=== PATIENT | female | born 1995 | race Caucasian/White ===

== ENCOUNTER → 2017-01-17 22:56 | Observation (INO) ==
--- NOTE | 2017-01-17 22:54 | OB/GYN Progress Note ---
Date of Encounter: 01/17/17 Time of Encounter: 22:50 - Assessment and Plan (1) Headache in , antepartum Current Visit: Yes Status: Acute Discussed with patient headaches in , and treatment for them. Discussed taking tylenol as soon as a headache starts instead of waiting hours later as it might not provide as much relief. Offered pt another dose of tylenol to try here, pt declined and would rather take some at home. Also discussed taking magnesium once a day on days she has the headache, and use of a single up of caffeine to help with the headache. Also discussed the importance of hydration in . Pt discharged home with precautions on when to call provider and return to triage. (2) 22 weeks gestation of Current Visit: Yes Status: Acute Subjective - Subjective Interval history: Pt complains of headache for the last 2 days, but they have been occurring the last few weeks of her , along with occasional nosebleeds (no nosebleed at this time) Reports good movement, denies contractions, vaginal bleeding or leaking of fluid. Pt states she had the headache all day, but did not take any tylenol until around 1700 with little improvement. Antepartum ROS: new complaints, movement normal, no loss of fluid, no vaginal bleeding, no contractions Objective - Vital Signs Vital Signs: Intake and Output 01/17/17 01/17/17 01/17/17 07:59 15:59 23:59 Other: Weight 116.9 kg Patient Weight 01/17/17 23:59 Weight 116.9 kg - Exam FHR: auscultation normal Abdomen: Present: normal appearance, soft, gravid
== END | disposition home or self-care (01) ==
LOC: 1NENULAB
PROVIDERS: ADMIT Advanced Practice Midwife; ATTEND Advanced Practice Midwife

== ENCOUNTER 2017-04-22 14:39 | Observation (INO) ==
[2017-04-22 17:25] LABS: Bilirubin,Urine Negative (Negative); Blood,Urine Negative (Negative); Clarity,Urine Cloudy (Clear); Color,Urine Yellow (Yellow); Glucose,Urine (UA) Normal (Normal); Ketones,Urine Negative (Negative); Leukocyte Esterase,Urine Small (Negative); Nitrite,Urine Positive (Negative); PH,Urine 6.5 pH Units (5.0-8.0); Protein,Urine Negative (Neg-Trace); Specific Gravity,Urine > 1.030 (1.010-1.025); Urobilinogen,Urine Normal (Normal)
[2017-04-22 17:27] LABS: Bacteria,Urine Many per hpf (None-Few); Hyaline Casts,Urine Few per lpf (None-Few); RBC,Urine 0-3 per hpf (0-3); Squamous Epithelial Cell,Urine Many per lpf (None-Few); WBC,Urine 30-50 per hpf (0-3)
[2017-04-22 17:35] LABS: Amphetamine Screen,Urine Negative ng/mL (Cutoff=1000); Barbiturate Screen,Urine Negative ng/mL (Cutoff=200); Benzodiazepines Screen,Urine Negative ng/mL (Cutoff=200); Cannabinoid Screen,Urine Negative ng/mL (Cutoff = 50); Cocaine Screen,Urine Negative ng/mL (Cutoff= 300); Opiate Screen,Urine Negative ng/mL (Cutoff=300); Phencyclidine Screen,Urine Negative ng/mL (Cutoff=25)
[2017-04-22 17:51] LABS: Calcium Oxalate Crystals,Urine Present
[2017-04-22 18:20] LABS: Basophils % 0.2 %; Eosinophils % 0.1 %; Hemoglobin 11.1 g/dL (11.5-15.4); Lymphocytes # 1.3 K/mcL (0.6-4.6); Lymphocytes % 9.5 %; Mean Corpuscular HGB Conc 31.7 g/dL (31.6-35.5); Mean Corpuscular Hemoglobin 26.4 pg (28.0-33.3); Mean Corpuscular Volume 83.3 fL (83.0-100.0); Monocytes # 0.5 K/mcL (0.0-1.3); Monocytes % 3.7 %; Neutrophils # 11.3 K/mcL (1.6-8.9); Nucleated Red Blood Cells 0.1 /100 WBC (0); Platelet Count 215 K/mcL (140-400); Red Cell Distribution Width 15.4 % (11.5-14.5); Segmented Neutrophils % 84.5 %
[2017-04-22] MEDS ORDERED: Acetaminophen 325 MG TABLET PO PRN (18:21)
[2017-04-22] MEDS ORDERED: GI Cocktail 40 ML EACH PO ONE (18:22)
[2017-04-22 18:34] LABS: Amylase 76 Units/L (25-125); Lipase 18 Units/L (8-78)
[2017-04-22 18:35] LABS: Alanine Aminotransferase 8 Units/L (0-55); Aspartate Amino Transferase 9 Units/L (5-34); BUN/Creatinine Ratio 15 (6-26); Blood Urea Nitrogen 9 mg/dL (7-20); Lactate Dehydrogenase 163 Units/L (159-327); eGFR For African Americans > 60 (> 60); eGFR For Non-African Americans > 60 (> 60)
--- NOTE | 2017-04-22 18:38 | OB/GYN History & Physical ---
Date of Encounter: 04/22/17 Time of Encounter: 15:30 Assessment and Plan (1) 36 weeks gestation of Current visit: Yes Status: Acute 36 0/7 weeks. Complicated by polydramnios +FM. Denies LOF, vaginal bleeding or discharge FHT category I (2) Abdominal pain Current visit: Yes Status: Acute Epigastric pain radiating to RUQ, RLQ, and back Afebrile, VSS. BP is normal and no other symptoms of PIH UA shows nitrites and small leuk esterase - indicating UTI, but her pain is still concerning for other causes - culture pending DDX includes: UTI, pylonephritis, HELLP syndrome, gall stone/biliary sludge WBC 13.4, Hgb 11.1, Platelets 215 CMP WNL, Amylase and Lipase normal Will check RUQ ultrasound as well Qualifiers: Abdominal location: epigastric Qualified Code(s): R10.13 - Epigastric pain (3) Polyhydramnios Current visit: Yes Status: Acute MOE 35.1 on ultrasound 04/21/17. Passed OGT Qualifiers: Fetus number: single or unspecified fetus Trimester: third trimester Qualified Code(s): O40.3XX0 - Polyhydramnios, third trimester, not applicable or unspecified (4) UTI (urinary tract infection) Current visit: Yes Status: Acute UA shows nitrites and small leuk esterase - indicating UTI, but her pain is still concerning for other causes - culture pending Possible pyelonephritis Plan for antibiotics pending further work-up US ordered for gallbladder PIH labs WNL. WBC 13 after [place] today. Qualifiers: Urinary tract infection type: site unspecified Hematuria presence: without hematuria Qualified Code(s): N39.0 - Urinary tract infection, site not specified History of Present Illness Chief complaint: Abdominal pain HPI: Ms. Regalado is a 21 year old female at 36 0/7 weeks gestation presenting with epigastric abdominal pain radiating down her sides and to her mid back. The pain began this morning when she woke up and she describes it as sharp and constant. It is associated with nausea. Her pain is not worse with eating and is distinctly different than previous heartburn. Worse with movement and contractions. She reports she has had contractions for the past 3 days and received betamethosone twice as an out-patient due to concern for delivery given her MOE 34cm. Her has been complicated by polyhydramnios diagnosed at 34 weeks. Hx of GDM in previous , but not currently. On review of symptoms she admits to some mild LE edema. +FM. She denies fevers, chills, headaches, vision changes, shortness of breath, chest pain, vomiting, diarrhea, dysuria, hematuria, foul smelling urine, LOF, vaginal bleeding or discharge. Past Med Surg Social Fam HX - Past Medical History Source: patient Medical history: non-contributory Psychiatric history: no psych history - Past Surgical History Surgical History: other (D&C after miscarriage) - Social History Smoking Status: Never smoker Smokeless Tobacco Status: No Alcohol use: none Drug use: none - Family History Mother Living Status: Still Living Hx Family Cardiac Disorders: Yes (hypertension) Hx Family Respiratory Disorders: No Hx Family Cancer: No Hx Family GI Disorders: No Hx Family Endocrine Disorder: No Hx Family Neuromuscular Disorders: No Hx Family Neurologic Disorders: No Hx Family HEENT Disorders: No Hx Family Autoimmune Disorders: No Obstetrical History - Pregnancies : 3 Para: 2 Term: 1 : 0 Ab's: 1 Livin - History/Complications History/Complications: Polyhydramnios - MOE 35.1 GDM with prior and shoulder dystocia during delivery. No GDM currently. Medications and Allergies No Known Home Drugs 01/17/17 [History] 3 Allergy/AdvReac Type Severity Reaction Status Date / Time No Known Allergies Allergy Verified 01/17/17 22:25 Review of System OB All systems PM: reviewed and no additional remarkable complaints except as stated Exam - Constitutional Constitutional: well developed, well nourished, mild distress, obese - HEENT HEENT: Normocephaly, Mucus Membranes Moist - Lungs Respiratory exam: CTAB - Cardiovascular Cardiovascular exam: RRR, +S1, +S2 - Abdomen Abdomen: Present: bowel sounds normal, gravid Abdomen detail: right upper quadrant: tenderness (Epigastric. Right CVA tenderness), right lower quadrant: tenderness - Extremities Extremities exam: pedal edema (mild bilaterally) - Uterus Uterus exam: Present: enlarged, normal contour. Absent: tender - Comments Comments: FHT baseline 125 bpm with moderate variability and accels Results Result Diagrams: 04/22/17 18:10 04/22/17 18:10 Abnormal lab results WBC 13.4 K/mcL (4.3-11.1) H 04/22/17 18:10 Hgb 11.1 g/dL (11.5-15.4) L 04/22/17 18:10 Hct 35.0 % (35.3-44.9) L 04/22/17 18:10 MCH 26.4 pg (28.0-33.3) L 04/22/17 18:10 RDW 15.4 % (11.5-14.5) H 04/22/17 18:10 Neutrophils # 11.3 K/mcL (1.6-8.9) H 04/22/17 18:10 Nucleated RBCs/100 WBC 0.1 /100 WBC (0) H 04/22/17 18:10 Urine Clarity Cloudy (Clear) A 04/22/17 16:35 Ur Specific [employer] > 1.030 (1.010-1.025) H 04/22/17 16:35 Urine Nitrite Positive (Negative) A 04/22/17 16:35 Ur Leukocyte Esterase Small (Negative) H 04/22/17 16:35 Urine Microscopic WBC 30-50 per hpf (0-3) H 04/22/17 16:35 Ur Squamous Epith Cells Many per lpf (None-Few) H 04/22/17 16:35 Urine Bacteria Many per hpf (None-Few) H 04/22/17 16:35 Ur Culture Indicated? YES (NO) A 04/22/17 16:35 All other labs normal. - VTE Reasons for not Prescribing Prophylaxis: Treatment not Indicated - Low risk for VTE
[2017-04-22] MEDS ORDERED: Ringers Solution, Lactated 1,000 ML IVC ONE (21:05)
[2017-04-22] MEDS ORDERED: cefTRIAXone 1,000 MG in Water for inj. (sterile) 10 ML IVP SCH (22:00)
[2017-04-23 00:11] LABS: Glucose 103 mg/dL (70-99)
[2017-04-23] MEDS ORDERED: *HR* HYDROcodone/Acet 5/325 mg TABLET PO ONE (00:31)
[2017-04-23 08:07] LABS: Protein/Creatinine Ratio,Urine 0.08 mg/mg (0-0.20)
== END 2017-04-23 01:14 | disposition home or self-care (01) ==
LOC: 1NENULAB
PROVIDERS: ADMIT Obstetrics & Gynecology; ATTEND Obstetrics & Gynecology

== ENCOUNTER → 2017-05-08 23:00 | Observation (INO) ==
[2017-05-08 18:54] LABS: Basophils % 0.4 %; Eosinophils # 0.1 K/mcL (0.0-0.6); Eosinophils % 0.8 %; Hematocrit 36.7 % (35.3-44.9); Hemoglobin 11.6 g/dL (11.5-15.4); Lymphocytes # 1.7 K/mcL (0.6-4.6); Lymphocytes % 17.2 %; Mean Corpuscular HGB Conc 31.6 g/dL (31.6-35.5); Mean Corpuscular Hemoglobin 26.4 pg (28.0-33.3); Mean Corpuscular Volume 83.4 fL (83.0-100.0); Mean Platelet Volume 10.5 fL (9.4-12.4); Monocytes # 0.5 K/mcL (0.0-1.3); Monocytes % 4.9 %; Neutrophils # 7.6 K/mcL (1.6-8.9); Platelet Count 217 K/mcL (140-400); Red Cell Distribution Width 15.9 % (11.5-14.5); Segmented Neutrophils % 75.7 %
[2017-05-08 19:03] LABS: Amphetamine Screen,Urine Negative ng/mL (Cutoff=1000); Barbiturate Screen,Urine Negative ng/mL (Cutoff=200); Benzodiazepines Screen,Urine Negative ng/mL (Cutoff=200); Cannabinoid Screen,Urine Negative ng/mL (Cutoff = 50); Cocaine Screen,Urine Negative ng/mL (Cutoff= 300); Opiate Screen,Urine Negative ng/mL (Cutoff=300); Phencyclidine Screen,Urine Negative ng/mL (Cutoff=25)
[2017-05-08 19:11] LABS: Alanine Aminotransferase 11 Units/L (0-55); Albumin 2.3 g/dL (3.5-5.0); Albumin/Globulin Ratio 0.5 (1.1-2.2); Alkaline Phosphatase 156 Units/L (38-126); Amylase 79 Units/L (25-125); Aspartate Amino Transferase 12 Units/L (5-34); BUN/Creatinine Ratio 17 (6-26); Bilirubin,Total 0.2 mg/dL (0.2-1.2); Blood Urea Nitrogen 11 mg/dL (7-20); Calcium 9.4 mg/dL (8.6-10.8); Carbon Dioxide 18 mEq/L (19-29); Chloride 107 mEq/L (98-109); Globulin 4.6 g/dL (2.4-3.5); Glucose 111 mg/dL (70-99); Lipase 19 Units/L (8-78); Osmolality,Calculated 288 (280-300); Potassium 4.1 mEq/L (3.5-4.5); Sodium 139 mEq/L (136-145); Total Protein 6.9 g/dL (6.0-8.3); eGFR For African Americans > 60 (> 60); eGFR For Non-African Americans > 60 (> 60)
--- NOTE | 2017-05-08 20:50 | OB/GYN Progress Note ---
Date of Encounter: 05/08/17 Time of Encounter: 20:44 - Assessment and Plan (1) 38 weeks gestation of Current Visit: Yes Status: Acute There with Dr. Martinez. section scheduled for 05/14 (2) Cholelithiasis Current Visit: Yes Status: Acute Discussed with Dr. Joshi, ordered CBC, CMP and gallbladder US. Pt filipe but states does not feel contractions. VE /-2 unchanged on serial exam. Discussed all results with Dr. Joshi he states pt pain will continue until delivery. Medicate with Percocet, if pain is management is satisfactory discharge home with Percocet. Pt states has effectively managed pain. Will discharge home with Percocet prescription, discuss labor precautions, cholelithiasis precautions, importance of movement, and when to return to return to triage for evaluation. Qualifiers: Cholecystitis presence: without cholecystitis Qualified Code(s): K80.20 - Calculus of gallbladder without cholecystitis without obstruction Subjective - Subjective Interval history: A 3 P1 38+2 weeks gestation presented to triage for evaluation of right upper quadrant pain. She was seen at the end of April and diagnosed with cholelithiasis. Patient states right upper quadrant pain started this morning, and has not relieved throughout the day. Reports good movement, denies vaginal bleeding or leaking fluid, headache, or visual changes Antepartum ROS: movement normal, no loss of fluid, no vaginal bleeding, no contractions Objective - Vital Signs Vital Signs: Intake and Output 05/08/17 05/08/17 05/08/17 07:59 15:59 23:59 Other: Weight 133.2 kg Patient Weight 05/08/17 23:59 Weight 133.2 kg - Exam FHR: auscultation normal FHR comments: 140/ reactive Auscultation: bilateral: normal Abdomen: Present: soft, gravid Cervical dilation: 75/-2 Comments: RUQ tenderness to palpation. - Labs Labs: Abnormal lab results MCH 26.4 pg (28.0-33.3) L 05/08/17 18:40 RDW 15.9 % (11.5-14.5) H 05/08/17 18:40 Carbon Dioxide 18 mEq/L (19-29) L 05/08/17 18:40 Glucose 111 mg/dL (70-99) H 05/08/17 18:40 Alkaline Phosphatase 156 Units/L (38-126) H 05/08/17 18:40 Albumin 2.3 g/dL (3.5-5.0) L 05/08/17 18:40 Globulin 4.6 g/dL (2.4-3.5) H 05/08/17 18:40 Albumin/Globulin Ratio 0.5 (1.1-2.2) L 05/08/17 18:40
[~2017-05-08 23:00] MED LIST: *HR* OxyCODONE/APAP 5/325 TABLET PO PRN
== END | disposition home or self-care (01) ==
LOC: 1NENULAB
PROVIDERS: ADMIT Student in an Organized Health Care Education/Training Program; ATTEND Student in an Organized Health Care Education/Training Program

== ENCOUNTER 2017-05-10 10:11 | Inpatient (IN) ==
--- NOTE | 2017-05-10 10:08 | Anesthesia Evaluation PreOp ---
Date of Encounter: 05/10/17 Time of Encounter: 10:00 - Past History Planned Operation: C Section Cardiac History: Other (Anemia) Pulmonary History: Denies Any Significant HX [employer] History: Denies Any Significant HX Other Medical History: Other (Morbid Obesity) Anesthesia History: No Prior Anesthetic Complications : Yes (38 week) Alcohol Use: none Drug use: none Medications and Allergies Ferrous Sulfate 05/08/17 [History] Oxycodone HCl/Acetaminophen [Percocet 5-325 mg Tablet] 1 each PO Q6HR PRN #5 tablet 05/08/17 [Rx] Tylenol 325mg SUPP 05/08/17 [History] 3 Allergy/AdvReac Type Severity Reaction Status Date / Time No Known Allergies Allergy Verified 01/17/17 22:25 - Meds/Allergy Pre-op Review Medications Reviewed: Yes Allergies Reviewed: Yes Beta Blockers on Current Med List: No Anesthesia Results - Labs Laboratory Tests 05/08/17 05/08/17 18:40 18:40 Hgb 11.6 Hct 36.7 Plt Count 217 Sodium 139 Potassium 4.1 BUN 11 Creatinine 0.63 Anesthesia Exam Height: 5'4 Weight: 280 lbs NPO (# of Hours): MN Pain Scale: 9 - HEENT Pupil (Motor): Pupils equal, EOMI Mallampati: II Teeth: Normal Oral Opening: Greater than 3 - [employer] LOC: Oriented [employer] Motor: Normal RUE, Normal LUE, Normal RLE, Normal LLE, Normal Face [employer] Sensory: Normal: RUE, LUE, RLE, LLE, Face - Cardiac Rhythm: Regular Murmur: None JVD: No Carotid Bruit: No - Pulmonary Breath Sounds: bilateral Clear Respiratory Effort: Symmetrical Anesthesia Assess/Plan ASA Score: 3 (MO ), E Modified Gracia Scale for Level of Consciousness: Cooperative, oriented, and tranquil Anesthetic Plan: General Monitoring Plan: Standard Monitors Recovery Plan: PACU (Discussed GA, agrees to proceed)
[~2017-05-10 10:11] MED LIST changes: -*HR* OxyCODONE/APAP 5/325 TABLET PO PRN; +CeFAZolin Syr 3,000MG/30 ML 3,000 MG/30 ML SYRINGE IVPB ONE; +Famotidine 20 MG/2 ML VIAL IVP ONE; +Metoclopramide 10 MG/2 ML VIAL IVP ONE; +Oxytocin 20 units/ LR 1000 mL 20 UNIT/1,000 ML BAG IVC ONE; +Ringers Solution, Lactated 1,000 ML IVC ONE; +Ringers Solution, Lactated 1,000 ML ONE
[2017-05-10] MEDS ORDERED: Oxytocin 20 units/ LR 1000 mL 20 UNIT/1,000 ML BAG IVC SCH ×2 (10:15→12:45)
[2017-05-10 10:22] LABS: Basophils % 0.3 %; Eosinophils # 0.1 K/mcL (0.0-0.6); Eosinophils % 1.3 %; Hematocrit 39.4 % (35.3-44.9); Hemoglobin 12.5 g/dL (11.5-15.4); Immature Granulocytes % 1.2 % (0-4); Lymphocytes # 2.3 K/mcL (0.6-4.6); Mean Corpuscular HGB Conc 31.7 g/dL (31.6-35.5); Mean Corpuscular Hemoglobin 26.4 pg (28.0-33.3); Mean Corpuscular Volume 83.3 fL (83.0-100.0); Mean Platelet Volume 10.2 fL (9.4-12.4); Monocytes # 0.6 K/mcL (0.0-1.3); Monocytes % 5.7 %; Neutrophils # 7.2 K/mcL (1.6-8.9); Platelet Count 220 K/mcL (140-400); Red Blood Count 4.73 M/mcL (3.82-4.97); Red Cell Distribution Width 15.9 % (11.5-14.5); Segmented Neutrophils % 69.5 %
[2017-05-10] MEDS ORDERED: *HR* Promethazine 25 MG/ML VIAL IVP PRN (10:45)
[2017-05-10] MEDS ORDERED: Ondansetron 4 MG/2 ML VIAL IVP ONE (10:45)
[2017-05-10] MEDS ORDERED: *HR* HYDROmorphone (PF) 1 MG/ML SYRINGE IVP PRN (10:45)
[2017-05-10] MEDS ORDERED: *HR* Morphine 2 MG/ML SYRINGE IVP PRN (10:45)
[2017-05-10] MEDS ORDERED: Acetaminophen IV 1,000 MG/100 ML INFUS..BTL IVPB ONE (10:49)
[2017-05-10] MEDS ORDERED: *HR* Succinylcholine 200 MG/10 ML VIAL IVP ONE (10:57)
[2017-05-10] MEDS ORDERED: *HR* HYDROmorphone (PF) 1 MG/ML SYRINGE ONE ×2 (10:57→11:13)
[2017-05-10] MEDS ORDERED: Ringers Solution, Lactated 1,000 ML ONE (10:57)
[2017-05-10] MEDS ORDERED: *HR* Oxytocin 10 UNIT/ML VIAL IM ONE ×2 (10:57)
[2017-05-10] MEDS ORDERED: Ondansetron 4 MG/2 ML VIAL ONE (10:57)
[2017-05-10] MEDS ORDERED: Dexamethasone 4 MG/ML VIAL ONE (10:57)
[2017-05-10] MEDS ORDERED: *HR* FentaNYL (PF) 100 MCG/2 ML VIAL ONE (10:57)
[2017-05-10] MEDS ORDERED: Water for inj. (sterile) 10 ML IV ONE (10:57)
[2017-05-10] MEDS ORDERED: *HR* Phenylephrine 10 MG/ML VIAL ONE (10:57)
[2017-05-10] MEDS ORDERED: *HR* Propofol 200 MG/20 ML VIAL IVP ONE (10:58)
--- NOTE | 2017-05-10 11:06 | OB/GYN History & Physical ---
Date of Encounter: 05/10/17 Time of Encounter: 11:06 Assessment and Plan (1) 38 weeks gestation of Current visit: Yes Status: Acute I counseled the patient again on whether she would want to try a vaginal delivery. With her history of shoulder dystocia in her last delivery and after counseling her that it is possible for her to have another shoulder dystocia especially in the setting of an LGA fetus, she was adamant that she did not want to try vaginal delivery. Anesthesia called in. The patient is unable to sit still for a spinal so she will be under general anesthesia. Patient readied for C/section. History of Present Illness HPI: Ms. Regalado is a 21 year old female @ 38+4 weeks who presented to L&D in labor. Her cervix was checked and 9cm with a bulging bag. She was initially scheduled for C/section on for LGA fetus. Her last U/S @ 34 weeks was 6lbs 15oz. course was complicated by polyhydramnios as well, her GTT was normal, GBS neg. No LOF or bleeding, very uncomfortable with her ctxs. Past Med Surg Social Fam HX - Past Medical History Medical history: no medical history Psychiatric history: no psych history - Past Surgical History Surgical History: other (D&C after miscarriage) - Social History Smoking Status: Never smoker Smokeless Tobacco Status: No Alcohol use: none Drug use: none - Family History Mother Adopted: No Living Status: Still Living Hx Family Cardiac Disorders: No Hx Family Respiratory Disorders: No Hx Family Cancer: No Hx Family GI Disorders: No Hx Family Endocrine Disorder: No Hx Family Neuromuscular Disorders: No Hx Family Neurologic Disorders: No Hx Family HEENT Disorders: No Hx Family Autoimmune Disorders: No Obstetrical History - Pregnancies : 3 Para: 2 Term: 1 Ab's: 1 Livin Medications and Allergies Ferrous Sulfate 05/08/17 [History] Oxycodone HCl/Acetaminophen [Percocet 5-325 mg Tablet] 1 each PO Q6HR PRN #5 tablet 05/08/17 [Rx] Tylenol 325mg SUPP 05/08/17 [History] 3 Allergy/AdvReac Type Severity Reaction Status Date / Time No Known Allergies Allergy Verified 01/17/17 22:25 Review of System OB All systems PM: reviewed and no additional remarkable complaints except as stated Exam - Constitutional Constitutional: well developed - HEENT HEENT: Normocephaly - Neck Neck exam: full ROM - Lungs Respiratory exam: CTAB - Cardiovascular Cardiovascular exam: RRR - Abdomen Abdomen: Present: gravid - Cervix Dilation: 9 Results Result Diagrams: 05/10/17 10:11 Abnormal lab results MCH 26.4 pg (28.0-33.3) L 05/10/17 10:11 RDW 15.9 % (11.5-14.5) H 05/10/17 10:11 All other labs normal. - VTE Reasons for not Prescribing Prophylaxis: Treatment not Indicated - Low risk for VTE
--- NOTE | 2017-05-10 11:19 | OB/GYN Procedure Note ---
Section - Date of procedure: 05/10/17 Preop diagnosis: other (LGA fetus) Post-op diagnosis: same Procedure: section, primary low transverse Surgeon: Mildred Joshi Estimated blood loss (cc): 450 Anesthesia Type: General section complications: none Disposition: L&D Recovery Room Specimens: Placenta, Cord blood - Narrative Narrative: Patient was brought to the operating room and was the abdomen was prepped and draped in a sterile fashion. She was then placed under general anesthesia. A Pfannenstiel incision was made and carried sharply down to the level of the fascia. The fascia was incised transversely. The fascia was dissected away from the underlying rectus muscles. With sharp and blunt dissection, rectus muscles were divided in midline. The perineum was entered bluntly. A transverse incision was made across the bladder peritoneum. The bladder was dissected away from the underlying lower uterine segment. Bladder retractor was placed to protect the bladder. The lower uterine segment was entered sharply with a scalpel. Incision was manually extended. Clear amniotic fluid was encountered. The infant's head was pulled up and delivered easily as were the shoulders and body. The mouth and oropharynx were suctioned. The cord was clamped and cut. The was passed off to the waiting esl teacher in satisfactory condition. Placenta was extracted completely and found to be intact. Uterus was explored and found to be empty. Uterus was delivered through the abdominal incision and massaged vigorously. Intravenous Pitocin was administered. The margins of the uterine incision was closed primarily with a running locking stitch of 0 Vicryl with adequate hemostasis. Secondary running locking stitch was placed for extra strength to the wound. The uterus was returned to its proper anatomic position in the abdomen. The fascia was closed with a simple running stitch of 0 vicryl. The skin was closed with running subcuticular of 4-0 vicryl. Patient was brought to the recovery room in satisfactory condition. There were no complications. There was 450 cc of blood loss. All sponge, needle, and instrument counts were reported to be correct.
--- NOTE | 2017-05-10 12:59 | Anesthesia Evaluation Post Op ---
Date of Encounter: 05/10/17 Time of Encounter: 12:58 - Vital Signs Vital Signs: VSS throughout PACU stay. - Lungs Lungs: Clear Ascult./Percussion - Airway Airway: Non-obstructed - Cardiovascular Regular Rate - Mental Status Mental Status: Alert & Oriented, Answers Appropriately - Pain Pain Scale: 4 Pain Scale used: Numeric (1 - 10) - Nausea Vomiting Nausea Vomiting: Not Present - Hydration Hydration: NPO, Holguin catheter - Discharge PostOp Status: Transfer Patient to floor
[2017-05-10] MEDS: *HR* HYDROmorphone (PF) 1 MG/ML SYRINGE IVP PRN ×2 (14:17→15:34)
[2017-05-10] MEDS: *HR* HYDROcodone/Acet 5/325 mg TABLET PO PRN ×2 (17:22→23:42)
[2017-05-10 17:40] LABS: Basophils % 0.1 %; Hematocrit 31.8 % (35.3-44.9); Immature Granulocytes % 0.6 % (0-4); Lymphocytes # 0.9 K/mcL (0.6-4.6); Lymphocytes % 4.5 %; Mean Corpuscular HGB Conc 32.4 g/dL (31.6-35.5); Mean Corpuscular Volume 83.5 fL (83.0-100.0); Mean Platelet Volume 10.5 fL (9.4-12.4); Monocytes # 0.7 K/mcL (0.0-1.3); Monocytes % 3.7 %; Neutrophils # 17.5 K/mcL (1.6-8.9); Platelet Count 211 K/mcL (140-400); Red Blood Count 3.81 M/mcL (3.82-4.97); Red Cell Distribution Width 15.9 % (11.5-14.5); Segmented Neutrophils % 91.1 %
[2017-05-10 17:43] LABS: Hemoglobin 10.3 g/dL (11.5-15.4)
[2017-05-10] MEDS: Ibuprofen 600 MG TABLET PO PRN (20:30)
[2017-05-11] MEDS: Ibuprofen 600 MG TABLET PO PRN ×3 (04:10→21:38)
[2017-05-11 06:24] LABS: Basophils % 0.1 %; Eosinophils % 0.2 %; Hematocrit 27.3 % (35.3-44.9); Immature Granulocytes % 0.8 % (0-4); Lymphocytes # 1.3 K/mcL (0.6-4.6); Lymphocytes % 11.1 %; Mean Corpuscular HGB Conc 31.5 g/dL (31.6-35.5); Mean Corpuscular Hemoglobin 26.5 pg (28.0-33.3); Mean Corpuscular Volume 84.3 fL (83.0-100.0); Mean Platelet Volume 10.5 fL (9.4-12.4); Monocytes # 0.7 K/mcL (0.0-1.3); Monocytes % 5.9 %; Neutrophils # 9.8 K/mcL (1.6-8.9); Platelet Count 152 K/mcL (140-400); Red Blood Count 3.24 M/mcL (3.82-4.97); Red Cell Distribution Width 16.2 % (11.5-14.5); Segmented Neutrophils % 81.9 %
[2017-05-11 06:29] LABS: Hemoglobin 8.6 g/dL (11.5-15.4)
[2017-05-11] MEDS: *HR* HYDROmorphone (PF) 1 MG/ML SYRINGE IVP PRN (06:34)
--- NOTE | 2017-05-11 07:59 | OB/GYN Progress Note ---
Date of Encounter: 05/11/17 Time of Encounter: 07:57 - Assessment and Plan (1) delivery delivered Current Visit: Yes Status: Acute Stable POD#1, transition to PO pain medication. encourage ambulation. anticipate DC tomorrow. (2) Anemia, Current Visit: Yes Status: Acute Continue iron Subjective - Subjective Interval history: Pt states pain currently well managed on iv pain medication, tolerates clears, trevizo just removed at 0600, has not voided at this time. Patient reports: appetite normal, pain well controlled [place]: doing well, nursing well Objective - Vital Signs Latest vital signs: Vital Signs Temp Pulse Resp BP Pulse Ox 05/11/17 07:30 98.7 F 106 18 121/69 98 05/11/17 06:30 98.7 F 106 16 109/62 98 05/11/17 05:40 98.1 F 104 16 102/59 97 05/11/17 04:21 98.8 F 116 16 116/68 100 05/11/17 00:10 98.7 F 101 16 111/68 98 05/10/17 20:00 98.7 F 102 14 130/88 99 05/10/17 19:00 98.3 F 104 20 128/78 97 05/10/17 18:14 98.0 F 106 16 133/79 97 05/10/17 17:10 98 05/10/17 17:00 98.6 F 114 18 134/87 98 05/10/17 16:10 97.8 F 106 18 136/86 98 05/10/17 15:15 97.5 F L 104 18 140/84 97 05/10/17 14:30 98.1 F 100 16 127/84 97 05/10/17 14:05 98.2 F 114 14 123/81 98 Intake and Output 05/10/17 05/10/17 05/11/17 15:59 23:59 07:59 Intake Total 100 / 100 200 / 200 Output Total 1000 / 1000 700 / 700 Balance 100 / 100 -800 / -800 -700 / -700 Intake: IV Fluids 100 / 100 Ofirmev 1,000 mg/100 ml 1,000 100 / 100 mg In 100 ml @ 400 mls/hr IVPB ONCE ONE Rx#:[id number] Oral 200 / 200 Output: Urine 500 / 500 Catheter 1000 / 1000 200 / 200 Other: Weight 126.6 kg 123.06 kg Patient Weight 05/11/17 23:59 Weight 123.06 kg - Exam Lungs: bilateral: normal Chest: Normal S1, Normal S2 Extremities: Present: normal Abdomen: Present: normal appearance, soft Incision: Present: dressed (MAYDA in place) Uterus: Present: firm Comments: fundus at U - Labs Labs: Laboratory Results - last 24 hr 05/10/17 05/10/17 05/11/17 10:11 17:34 06:02 WBC 10.4 19.2 H D 12.0 H RBC 4.73 3.81 L 3.24 L Hgb 12.5 10.3 L D 8.6 L D Hct 39.4 31.8 L 27.3 L MCV 83.3 83.5 84.3 MCH 26.4 L 27.0 L 26.5 L MCHC 31.7 32.4 31.5 L RDW 15.9 H 15.9 H 16.2 H Plt Count 220 211 152 MPV 10.2 10.5 10.5 Immature Gran % 1.2 0.6 0.8 Seg Neutrophils % 69.5 91.1 81.9 Lymphocytes % 22.0 4.5 11.1 Monocytes % 5.7 3.7 5.9 Eosinophils % 1.3 0.0 0.2 Basophils % 0.3 0.1 0.1 Neutrophils # 7.2 17.5 H 9.8 H Lymphocytes # 2.3 0.9 1.3 Monocytes # 0.6 0.7 0.7 Eosinophils # 0.1 0.0 0.0 Basophils # 0.0 0.0 0.0
[2017-05-11] MEDS: Prenatal Vit/FA 1 EACH TABLET PO SCH (09:27)
[2017-05-11] MEDS: *HR* HYDROcodone/Acet 5/325 mg TABLET PO PRN ×3 (09:35→21:37)
[2017-05-11] MEDS ORDERED: Ringers Solution, Lactated 1,000 ML ONE (11:59)
[2017-05-11] MEDS ORDERED: Acetaminophen 325 MG TABLET PO PRN (21:00)
--- NOTE | 2017-05-11 21:03 | OB/GYN Progress Note ---
Date of Encounter: 05/11/17 Time of Encounter: 21:01 - Assessment and Plan (1) delivery delivered Current Visit: Yes Status: Acute Stable POD#1, transition to PO pain medication. encourage ambulation. anticipate DC tomorrow. (2) Anemia, Current Visit: Yes Status: Acute Continue iron (3) Fever Current Visit: Yes Status: Acute Called by RN to assess. Discussed with Dr. Oliveros will obtain AM CBC now, start Keflex, Clindamycin and tylenol now, encourage po fluid intake. Will observe. Does not meet SIRS criteria at this time. Qualifiers: Fever type: unspecified Qualified Code(s): R50.9 - Fever, unspecified Subjective - Subjective Interval history: Pt states she currently feels hot and sore all over with pain and tenderness in bilateral breasts,tolerates po, ambulated around unit, . Patient reports: appetite normal, voiding normally, pain well controlled, ambulating normally [place]: doing well, nursing well Objective - Vital Signs Latest vital signs: Vital Signs Temp Pulse Resp BP Pulse Ox 05/11/17 20:00 100.6 F H 126 14 129/75 98 05/11/17 15:00 98.4 F 108 18 127/69 05/11/17 07:30 98.7 F 106 18 121/69 98 05/11/17 06:30 98.7 F 106 16 109/62 98 05/11/17 05:40 98.1 F 104 16 102/59 97 05/11/17 04:21 98.8 F 116 16 116/68 100 05/11/17 00:10 98.7 F 101 16 111/68 98 Intake and Output 05/11/17 05/11/17 05/11/17 07:59 15:59 23:59 Intake Total 800 / 800 Output Total 700 / 700 1600 / 1600 800 / 800 Balance -700 / -700 -800 / -800 -800 / -800 Intake: Oral 800 / 800 Output: Urine 500 / 500 1600 / 1600 800 / 800 Catheter 200 / 200 Other: Meal Lunch Percent of Meal Consumed 100% Weight 123.06 kg Patient Weight 05/11/17 23:59 Weight 123.06 kg - Exam Lungs: bilateral: normal Chest: Normal S1, Normal S2 Extremities: Present: normal Abdomen: Present: normal appearance, soft, tenderness Incision: Present: dressed (Mayda in place no signs of rendess outside of dressing ) Uterus: Present: firm (at U) Comments: Pt warm to touch, redness noted to bilateral areola, left greater than right. Abdomen tender to touch, MAYDA without drainage or redness outside of dressing. Tachycardia noted with HR in 120 - Labs Labs: Laboratory Results - last 24 hr 05/11/17 06:02 WBC 12.0 H RBC 3.24 L Hgb 8.6 L D Hct 27.3 L MCV 84.3 MCH 26.5 L MCHC 31.5 L RDW 16.2 H Plt Count 152 MPV 10.5 Immature Gran % 0.8 Seg Neutrophils % 81.9 Lymphocytes % 11.1 Monocytes % 5.9 Eosinophils % 0.2 Basophils % 0.1 Neutrophils # 9.8 H Lymphocytes # 1.3 Monocytes # 0.7 Eosinophils # 0.0 Basophils # 0.0
[2017-05-11] MEDS: cephALEXin 500 MG CAPSULE PO SCH (21:37)
[2017-05-11 21:55] LABS: Basophils % 0.3 %; Eosinophils % 0.3 %; Hematocrit 26.1 % (35.3-44.9); Hemoglobin 8.3 g/dL (11.5-15.4); Immature Granulocytes % 1.7 % (0-4); Lymphocytes # 1.7 K/mcL (0.6-4.6); Lymphocytes % 13.4 %; Mean Corpuscular HGB Conc 31.8 g/dL (31.6-35.5); Mean Corpuscular Hemoglobin 26.7 pg (28.0-33.3); Mean Corpuscular Volume 83.9 fL (83.0-100.0); Mean Platelet Volume 10.1 fL (9.4-12.4); Monocytes # 0.7 K/mcL (0.0-1.3); Monocytes % 5.5 %; Neutrophils # 9.7 K/mcL (1.6-8.9); Platelet Count 166 K/mcL (140-400); Red Blood Count 3.11 M/mcL (3.82-4.97); Red Cell Distribution Width 16.5 % (11.5-14.5); Segmented Neutrophils % 78.8 %
[2017-05-12] MEDS: Ibuprofen 600 MG TABLET PO PRN ×3 (06:22→20:48)
[2017-05-12] MEDS: *HR* HYDROcodone/Acet 5/325 mg TABLET PO PRN ×3 (06:23→23:33)
[2017-05-12] MEDS: cephALEXin 500 MG CAPSULE PO SCH ×4 (06:45→23:32)
[2017-05-12] MEDS: Prenatal Vit/FA 1 EACH TABLET PO SCH (07:53)
--- NOTE | 2017-05-12 08:34 | OB/GYN Progress Note ---
Date of Encounter: 05/12/17 Time of Encounter: 08:32 - Assessment and Plan (1) delivery delivered Current Visit: Yes Status: Acute Pt is s/p POD#2 and meeting all post-op milestones. Ambulating well, tolerating PO intake, passing flatus. Pain controlled. (2) Anemia, Current Visit: Yes Status: Acute Hgb 7.4, down from 8.3. Denies dizziness or light-headedness. Continue Iron supplementation (3) Fever Current Visit: Yes Status: Acute Pt had a fever last evening of 100.6. No fever this AM or other signs of infection. WBC now 12.3. Continue Keflex and Clindamycin. Continue to monitor and likely discharge tomorrow. Qualifiers: Fever type: unspecified Qualified Code(s): R50.9 - Fever, unspecified Subjective - Subjective Principal diagnosis: s/p Section Interval history: Pt is doing well this morning with no complaints. Reports that she was feeling warm last evening with her elevated temp (100.6), but denies any warmth, flushing, or chills today. Patient reports: appetite normal, voiding normally, pain well controlled, ambulating normally [place]: doing well, bottle feeding (and supplementing with formula) Objective - Vital Signs Latest vital signs: Vital Signs Temp Pulse Pulse Resp BP Pulse Ox 05/12/17 07:59 16 05/12/17 03:15 98.5 F 107 16 110/75 98 05/11/17 23:50 98 F 112 14 141/87 98 05/11/17 20:00 100.6 F H 126 14 129/75 98 05/11/17 19:55 126 05/11/17 15:00 98.4 F 108 18 127/69 Intake and Output 05/11/17 05/12/17 05/12/17 23:59 07:59 15:59 Intake Total 800 / 800 Output Total 1200 / 1200 900 / 900 Balance -1200 / -1200 -100 / -100 Intake: Oral 800 / 800 Output: Urine 1200 / 1200 900 / 900 Other: Stool Size Small Stool Characteristics Normal for Patient Normal for Patient - Exam Lungs: bilateral: normal Chest: Normal S1, Normal S2 Extremities: Present: normal, edema (mild bilaterally) Abdomen: Present: normal appearance, soft, gravid Incision: Present: normal (dressing in place, clean, dry, and intact), dry, intact Uterus: Present: normal, firm Fundal Height: 2 (fingers below umbilicus) Comments: I examined this patient and my medical decision-making was reviewed with the Resident Physician. I agree with the documented findings, disposition and treatment plan as described except to the extent set forth below. GABRIEL Wren - Labs Labs: Laboratory Results - last 24 hr 05/11/17 21:48 WBC 12.3 H RBC 3.11 L Hgb 8.3 L Hct 26.1 L MCV 83.9 MCH 26.7 L MCHC 31.8 RDW 16.5 H Plt Count 166 MPV 10.1 Immature Gran % 1.7 Seg Neutrophils % 78.8 Lymphocytes % 13.4 Monocytes % 5.5 Eosinophils % 0.3 Basophils % 0.3 Neutrophils # 9.7 H Lymphocytes # 1.7 Monocytes # 0.7 Eosinophils # 0.0 Basophils # 0.0
[2017-05-13] MEDS: Ibuprofen 600 MG TABLET PO PRN ×2 (05:41→11:39)
[2017-05-13] MEDS: *HR* HYDROcodone/Acet 5/325 mg TABLET PO PRN ×2 (05:42→11:39)
--- NOTE | 2017-05-13 08:45 | Discharge Summary ---
Date of Encounter: 05/13/17 Time of Encounter: 08:42 - Discharge Diagnosis (1) S/P section Priority: Primary Status: Acute Comments: Patient is s/p c section POD #3. She states that she has been able to ambulate with out issues. Tolerating PO without issues. States that she has been passing flatus and has had a bowel movement. States that she has been urinating. Reports decreased vaginal bleeding. She is attempting to breast feed. States that she is doing well and ready to go home. (2) Breast feeding status of mother Priority: Secondary Status: Acute Comments: Patient is breast feeding. Breast pump prescription at discharge. (3) Anemia, Priority: Secondary Status: Acute Comments: Most recent Hgb 8.3 Continue ferrous sulfate - Discharge Medications Prescriptions: HYDROcodone/Acet 5/325 mg [[place] 5-325 mg] 1 tab PO Q6HR PRN #30 tablet PRN Reason: Moderate Pain (4-6) Ibuprofen [Motrin] 600 mg PO Q6HR PRN #30 tablet PRN Reason: Cramping Breast Pump [BREAST PUMP] 1 each .ROUTE AD #1 each cephALEXin [Keflex] 500 mg PO QID #24 capsule Clindamycin [Cleocin] 300 mg PO Q6H #24 capsule Docusate [Colace] 100 mg PO BID #60 capsule Ferrous Sulfate 325 mg PO BID #60 tablet Home Medications: Breast Pump [BREAST PUMP] 1 each .ROUTE AD #1 each 05/13/17 [Rx] Clindamycin [Cleocin] 300 mg PO Q6H #24 capsule 05/13/17 [Rx] Docusate [Colace] 100 mg PO BID #60 capsule 05/13/17 [Rx] Ferrous Sulfate 325 mg PO BID #60 tablet 05/13/17 [Rx] HYDROcodone/Acet 5/325 mg [[place] 5-325 mg] 1 tab PO Q6HR PRN #30 tablet [Rx] Ibuprofen [Motrin] 600 mg PO Q6HR PRN #30 tablet 05/13/17 [Rx] Vit/FA 1 each PO DAILY tablet 05/13/17 [Rx] cephALEXin [Keflex] 500 mg PO QID #24 capsule 05/13/17 [Rx] Allergies/Adverse Reactions: 3 Allergy/AdvReac Type Severity Reaction Status Date / Time No Known Allergies Allergy Verified 01/17/17 22:25 Data Procedures and tests throughout hospitalization: Laboratory Tests 05/10/17 05/10/17 05/11/17 10:11 17:34 06:02 WBC 10.4 19.2 H D 12.0 H RBC 4.73 3.81 L 3.24 L Hgb 12.5 10.3 L D 8.6 L D Hct 39.4 31.8 L 27.3 L MCV 83.3 83.5 84.3 MCH 26.4 L 27.0 L 26.5 L MCHC 31.7 32.4 31.5 L RDW 15.9 H 15.9 H 16.2 H Plt Count 220 211 152 MPV 10.2 10.5 10.5 Immature Gran % 1.2 0.6 0.8 Seg Neutrophils % 69.5 91.1 81.9 Lymphocytes % 22.0 4.5 11.1 Monocytes % 5.7 3.7 5.9 Eosinophils % 1.3 0.0 0.2 Basophils % 0.3 0.1 0.1 Neutrophils # 7.2 17.5 H 9.8 H Lymphocytes # 2.3 0.9 1.3 Monocytes # 0.6 0.7 0.7 Eosinophils # 0.1 0.0 0.0 Basophils # 0.0 0.0 0.0 05/11/17 21:48 WBC 12.3 H RBC 3.11 L Hgb 8.3 L Hct 26.1 L MCV 83.9 MCH 26.7 L MCHC 31.8 RDW 16.5 H Plt Count 166 MPV 10.1 Immature Gran % 1.7 Seg Neutrophils % 78.8 Lymphocytes % 13.4 Monocytes % 5.5 Eosinophils % 0.3 Basophils % 0.3 Neutrophils # 9.7 H Lymphocytes # 1.7 Monocytes # 0.7 Eosinophils # 0.0 Basophils # 0.0 Date of admission: 05/10/17 10:11 Primary care physician: PCP NONE Consults: 05/10/17 12:41 Consult to Mud Analysis Operator [CONS] Routine Comment: Vaginal delivery, consult needed 05/10/17 17:20 Consult to [place] Machine Operator (W&C) [CONS] Routine Reason For Exam: Reason for SW Consult: Was homeless during and her father has custody of her 2 year old Discharging clinician: Jose Miguel Ortiz Anticipated date of discharge: 05/13/17 - Patient Status Disposition: Home, Self-Care Condition: Good Functional capacity at discharge: independent ambulation Overall status at discharge: patient is progressing back to baseline - Discharge Instructions Follow Up With: Mildred Joshi MD [Partnered Physician] - 06/02/17 3:15 pm NONE,PCP [Primary Care Provider] - - Diet and Activity Activity: increase activity as tolerated Diet: advance to your usual diet Hospital Course Reason for admission: active labor Delivery: section Episiotomy: none Laceration: none Other procedures: none complications: none Discharge diagnosis: IUP at term delivered baby: male Hospital course: Date of procedure: 05/10/17 Preop diagnosis: other (LGA fetus) Post-op diagnosis: same Procedure: section, primary low transverse Surgeon: Mildred Joshi Estimated blood loss (cc): 450 Anesthesia Type: General section complications: none Disposition: L&D Recovery Room Specimens: Placenta, Cord blood - Narrative Narrative: Patient was brought to the operating room and was the abdomen was prepped and draped in a sterile fashion. She was then placed under general anesthesia. A Pfannenstiel incision was made and carried sharply down to the level of the fascia. The fascia was incised transversely. The fascia was dissected away from the underlying rectus muscles. With sharp and blunt dissection, rectus muscles were divided in midline. The perineum was entered bluntly. A transverse incision was made across the bladder peritoneum. The bladder was dissected away from the underlying lower uterine segment. Bladder retractor was placed to protect the bladder. The lower uterine segment was entered sharply with a scalpel. Incision was manually extended. Clear amniotic fluid was encountered. The infant's head was pulled up and delivered easily as were the shoulders and body. The mouth and oropharynx were suctioned. The cord was clamped and cut. The infant was passed off to the waiting injection specialist in satisfactory condition. Placenta was extracted completely and found to be intact. Uterus was explored and found to be empty. Uterus was delivered through the abdominal incision and massaged vigorously. Intravenous Pitocin was administered. The margins of the uterine incision was closed primarily with a running locking stitch of 0 Vicryl with adequate hemostasis. Secondary running locking stitch was placed for extra strength to the wound. The uterus was returned to its proper anatomic position in the abdomen. The fascia was closed with a simple running stitch of 0 vicryl. The skin was closed with running subcuticular of 4-0 vicryl. Patient was brought to the recovery room in satisfactory condition. There were no complications. There was 450 cc of blood loss. All sponge, needle, and instrument counts were reported to be correct. Patient is stable and appropriate for discharge. OAARS reviewed Time Attestation: Total time spent providing and/or coordinating discharge services: - VTE Reasons for not Prescribing Prophylaxis: Treatment not Indicated - Low risk for VTE Documentation of Mechanical Device: Intermittent pneumatic compression device Exam - Constitutional Vitals: Temp Pulse Resp BP Pulse Ox 98.1 F 106 14 130/88 98 05/13/17 01:00 05/13/17 01:00 05/13/17 01:00 05/13/17 01:00 05/13/17 01:00 General appearance IM: A&O X 3 - Respiratory Respiratory exam: Present: CTAB - Cardiovascular Cardiovascular exam IM: Present: RRR, +S1, +S2 - GI/Abdominal GI/Abdominal exam IM: normal bowel sounds, tenderness (diffuse tenderness) Incision: dry, dressed - Uterus Position: 1 Finger Below Umbilicus - Extremities Exam Extremities exam IM: Present: full ROM. Absent: calf tenderness - Neurological Exam Neurological exam: alert, oriented X3 - Psychiatric Additional comments: Pt reports good mood.
[2017-05-13 09:09] VITALS: BP 135/92
[2017-05-13] MEDS: cephALEXin 500 MG CAPSULE PO SCH (09:09)
[2017-05-13] MEDS: Prenatal Vit/FA 1 EACH TABLET PO SCH (09:09)
== END 2017-05-13 12:23 | disposition home or self-care (01) | DRG 540 ==
LOC: 1NENULAB → 1NENUOBS 14:00
PROVIDERS: ADMIT Student in an Organized Health Care Education/Training Program; ATTEND Student in an Organized Health Care Education/Training Program